=== PATIENT | male | born 1980 | race Two or more races ===

== ENCOUNTER 2017-06-08 20:21 | Emergency (ER) | payer OTHER ==
[~2017-06-08] VITALS: Ht 175.3 cm; Wt 81.6 kg
[2017-06-08] MEDS ORDERED: LEVO500T2 PO (20:54)
[2017-06-08] MEDS ORDERED: PANT40TA2 PO (20:54)
[2017-06-08] MEDS ORDERED: METR500T4 PO (20:54)
--- NOTE | 2017-06-08 22:00 | NUR ---
DR. SANDY AT BEDSIDE FOR MSE.
[2017-06-08] MEDS: IV NORMAL SALINE 1000 ML BAG IV ONE (22:26)
[2017-06-08] MEDS: HYDROMORPHONE 1 MG/1 ML DISP.SYRIN IV ONE (22:30)
[2017-06-08] MEDS: ONDANSETRON 4 MG/2 ML VIAL IV ONE (22:31)
[2017-06-08 22:33] LABS: BASOPHILS % (AUTO) 0.4 % (0.0-2.0); EOSINOPHILS # (AUTO) 0.1 K/uL (0.0-0.7); EOSINOPHILS % (AUTO) 2.4 % (0.0-7.0); HEMATOCRIT 43.4 % (36.7-47.1); HEMOGLOBIN 15.3 g/dL (12.5-16.3); LYMPHOCYTES # (AUTO) 1.6 K/uL (20.0-40.0); LYMPHOCYTES % (AUTO) 31.2 % (20.5-51.5); MEAN CORPUSCULAR HGB CONC 35 g/dL (32.5-36.3); MEAN CORPUSCULAR VOLUME 88.2 fL (73.0-96.2); MONOCYTES # (AUTO) 0.4 K/uL (2.0-10.0); MONOCYTES % (AUTO) 8.7 % (0.0-11.0); NEUTROPHILS # (AUTO) 2.9 K/uL (1.8-8.9); NEUTROPHILS % (AUTO) 57.3 % (38.5-71.5); PLATELET COUNT (AUTO) 255 K/uL (152-348); RED BLOOD CELL COUNT(AUTO) 4.93 MIL/uL (4.06-5.63); WHITE BLOOD COUNT (AUTO) 5.1 K/uL (3.6-10.2)
[2017-06-08 22:43] LABS: *BILIRUBIN,URIN NEGATIVE (NEGATIVE); *BLOOD, URINE NEGATIVE (NEGATIVE); *CLARITY,URINE CLEAR (CLEAR); *COLOR,URINE LIGHT YELLOW (YELLOW); *KETONES,URINE NEGATIVE (NEGATIVE); *PROTEIN,URINE NEGATIVE (NEGATIVE); *UROBILINOGEN,URINE 0.2 E.U./dl (NORMAL); LEUKOCYTE ESTERASE ,URINE NEGATIVE (NEGATIVE); NITRITE, URINE NEGATIVE (NEGATIVE); UGLUCOSE NEGATIVE (NEGATIVE)
[2017-06-08 22:45] LABS: CREATININE 1.1 mg/dL (0.6-1.3)
[2017-06-08] MEDS ORDERED: HYDROMORPHONE 2 MG/1 ML DISP.SYRIN ONE (22:45)
[2017-06-08] MEDS ORDERED: ONDANSETRON 4 MG/2 ML VIAL ONE (22:45)
[2017-06-08 22:51] LABS: BILIRUBIN,DIRECT 0.1 mg/dL (0.0-0.2); BILIRUBIN,TOTAL 0.7 mg/dL (0.2-1.0); TOTAL PROTEIN, SERUM 7.1 g/dL (6.4-8.2)
[2017-06-08 23:10] LABS: BACTERIA,URINE NONE SEEN /HPF (NONE SEEN); RBC,URINE NONE SEEN /HPF (0-3); SQUAMOUS EPITHELIAL CELL,UR FEW /HPF (NONE SEEN); WBC,URINE 0-3 /HPF (0-3)
[2017-06-09] MEDS: PANTOPRAZOLE SODIUM 40 MG VIAL IV ONE (00:33)
[2017-06-09] MEDS ORDERED: PANTOPRAZOLE SODIUM 40 MG VIAL ONE (00:44)
[2017-06-09 00:54] VITALS: BP 123/76
--- NOTE | 2017-06-09 00:54 | NUR ---
Patient discharged to home in stable conditon. Written and verbal after care instructions given. Patient verbalizes understanding of instructions. PATIENT LEFT WITH STABLE GAIT.
== END 2017-06-09 00:55 | disposition home or self-care (01) ==
LOC: ER 20:21
DX: K52.9 Noninfective gastroenteritis and colitis, unspecified (principal); Z88.0 Allergy status to penicillin
CPT/HCPCS: 36415; 74176; 80048; 80076; 81001; 83690; 85025; 85730; 96360; 96374; 96375; 99285; A4663; C9113; J1170; J2405; J7030